=== PATIENT | female | born 1965 | race Hispanic/Latino ===

== ENCOUNTER 2020-08-10 05:45 | Day surgery (SDC) | payer OTHER ==
[2020-08-06 10:37] LABS: BASOPHILS % (AUTO) 0.6 % (0.0-5.0); EOSINOPHILS % (AUTO) 1.9 % (0.0-8.0); HEMATOCRIT 43.7 % (36-48); LYMPHOCYTES % (AUTO) 30.5 % (21.0-51.0); MEAN CORPUSCULAR HEMOGLOBIN 28.7 pg (27.0-33.0); MEAN CORPUSCULAR HGB CONC 30.9 g/dL (32.0-36.0); MEAN CORPUSCULAR VOLUME 92.8 fL (79-99); MONOCYTES % (AUTO) 6.4 % (3.0-13.0); NEUTROPHILS % (AUTO) 60.3 % (40.0-77.0); PLATELET COUNT (AUTO) 286 K/uL (130-400); RED BLOOD CELL COUNT(AUTO) 4.71 MIL/uL (4.00-5.50); RED CELL DISTRIBUTION WIDTH 14.8 % (11.0-15.5); WHITE BLOOD COUNT (AUTO) 7.2 K/uL (4.8-10.8)
[2020-08-06 10:47] LABS: CREATININE 0.7 mg/dL (0.5-1.5); POTASSIUM 4.9 mmol/L (3.5-5.1)
[2020-08-07 10:49] VITALS: BP 154/84
[2020-08-10] VITALS (18 sets, daily range): BP systolic 118–166; BP diastolic 67–85
[~2020-08-10] VITALS: Ht 154.9 cm; Wt 79.7 kg
[2020-08-10] MEDS ORDERED: CEFAZOLIN SODIUM 1 GM VIAL IVP SCH (06:00)
[2020-08-10] MEDS ORDERED: OLME5TAB6 PO (06:36)
[2020-08-10] MEDS ORDERED: LACTATED RINGERS 1000ML 1,000 ML IV ONE (06:41)
[2020-08-10] MEDS ORDERED: CEFAZOLIN SODIUM 1 GM VIAL ONE (07:16)
[2020-08-10] MEDS ORDERED: SUCCINYLCHOLINE CHLORIDE 20 MG/ML 10 ML VIAL ONE (08:08)
[2020-08-10] MEDS ORDERED: LIDOCAINE PF 2% 5ML ABBOJECT ONE (08:08)
[2020-08-10] MEDS ORDERED: PROPOFOL 10 MG/ML 20ML VIAL IV ONE (08:09)
[2020-08-10] MEDS ORDERED: ROCURONIUM 10MG/1ML SYR 10 MG/ML ML ONE (08:09)
[2020-08-10] MEDS ORDERED: MIDAZOLAM HCL 1 MG/ML 2ML VIAL ONE (08:09)
[2020-08-10] MEDS ORDERED: ROPIVACAINE 0.5% 5MG/ML 30ML IJ ONE ×2 (08:15)
[2020-08-10] MEDS ORDERED: FENTANYL CITRATE PF 50 MCG/1 ML 2ML VIAL ONE (08:24)
[2020-08-10] MEDS ORDERED: DEXAMETHASONE SOD PHOSPHATE 4 MG/ML 1ML VIAL ONE (08:36)
[2020-08-10] MEDS ORDERED: ONDANSETRON HCL 4 MG/2 ML VIAL ONE (08:36)
[2020-08-10] MEDS ORDERED: PHENYLEPHRINE HCL 10 MG/ML 1ML VIAL IV ONE (08:46)
[2020-08-10] MEDS ORDERED: GLYCOPYRROLATE 1 MG/5 ML SYRINGE ONE (09:47)
[2020-08-10] MEDS ORDERED: NEOSTIGMINE 5MG/5ML SYR IV ONE (09:47)
[2020-08-10] MEDS ORDERED: CEPH500B PO (10:15)
[2020-08-10] MEDS ORDERED: IBUP-2070 PO (10:15)
[2020-08-10] MEDS ORDERED: ACET1TAB25 PO (10:15)
[2020-08-10] MEDS ORDERED: MEPERIDINE-PF 25 MG/ML SYG ONE ×2 (10:42→10:50)
== END 2020-08-10 12:45 | disposition home or self-care (01) ==
LOC: DAH 05:45
PROVIDERS: ATTEND Orthopaedic Surgery
DX: M77.11 Lateral epicondylitis, right elbow (principal); Z20.822 Contact with and (suspected) exposure to COVID-19; I10 Essential (primary) hypertension; E11.9 Type 2 diabetes mellitus without complications; E78.5 Hyperlipidemia, unspecified; E66.9 Obesity, unspecified; Z98.891 History of uterine scar from previous surgery; Z90.49 Acquired absence of other specified parts of digestive tract; Z98.890 Other specified postprocedural states
CPT/HCPCS: 24358; 36415; 64415; 76942; 80048; 85025; 93005; A4215; A4221; A4222; A4223; A4649 ×2; A4663; A6223; C9803; J0330; J0690 ×2; J1100; J2001; J2175 ×2; J2250; J2370; J2405; J2704; J2710; J2795 ×2; J3010; J3490; J7120; U0003